=== PATIENT | female | born 1995 ===

== ENCOUNTER 2019-06-01 10:18 | Inpatient (IN) ==
[2019-06-01] MEDS ORDERED: OXYTOCIN 30 UNITS/500 ML BAG IV PRN ×2 (19:39→19:44)
[2019-06-01 20:19] LABS: Hematocrit (blood only) 32.1 % (37-47); Hemoglobin 11.1 g/dL (12.0-16.0); Mean Corpuscular Volume 85.6 fL (80-100); Mean Platelet Volume 11.3 fL (7.4-10.4); Platelet Count 192 K/uL (130-400); RDW Coefficient of Variation 12.9 % (11.5-14.5); RDW Standard Deviation 39.9 fL (36.4-46.3); Red Blood Count 3.75 M/uL (4.2-5.4); White Blood Count 8.27 K/uL (4.8-10.8)
[2019-06-01 20:22] LABS: Mean Corpuscular Hgb Conc 34.6 g/dL (32-36)
[2019-06-01] MEDS: LACTATED RINGER'S 1,000 ML IV PRN (20:30)
--- NOTE | 2019-06-01 21:51 | History & Physical Report ---
Date of Service June 01, 2019 Assessment & Plan (1) : Admit to L&D, IV access, labs, EFM/[place]. Will start pitocin for IOL. Patient plans for epidural. History of Present Illness Chief Complaint: eIOL Primary Care Provider: Jeremy Lujan MD 24yo @ 39 5/7 here for elective IOL. Uncomplicated . + movement. No vaginal bleeding, leaking of fluid, or regular ctx. Allergies Allergy/AdvReac Type Severity Reaction Status Date / Time Animal dander - Cats Allergy Uncoded 05/17/19 15:17 No Known Drug Allergies Allergy Uncoded 05/17/19 15:17 Home Medications Home Medications Medication Instructions Recorded Confirmed Type PNV cmb#95-ferrous fumarate-FA 1 tab PO DAILY 06/01/19 06/01/19 History [] Patient History Family History Grandmother (Paternal) Diabetes Hypertension Grandfather (Maternal) Diabetes Hyperlipidemia Hypertension Mother Depression Father Kidney stone Social History Preferred Language: Kiswahili Communication Ability: Effective [employer] Required: No Beliefs That Will Affect Care: None marital status: Current Living Situation: Spouse and Parent Current Living Situation Comment: And brothers Other Information That Helps Us Care for You: No Feels Safe at Home: Yes Safety Concerns: Feels Safe At This Time Smoking Status: Never smoker Second Hand Exposure: No ; Hx Alcohol Use: No Hx Substance Use: No Review of Systems All systems reviewed & are unremarkable except as noted in HPI & below Physical Exam Physical Exam: Gen: AAOx3 NAD CV: RRR L: CTAB Abd: soft, gravid, NTTP Ext: no edema SVE: 3/80/-2 FHT Cat 1 [place] no ctx Results & Data Vital Signs (Past 12 Hours) Vital Signs Temp Pulse Resp BP 06/01/19 19:49 36.8 C 18 06/01/19 19:46 99 H 133/81
[2019-06-02] MEDS ORDERED: BUPIVACAINE 0.25% 30 ML VIAL ONE (02:02)
[2019-06-02] MEDS ORDERED: fentaNYL citrate 100 MCG/2 ML VIAL ONE (02:02)
[2019-06-02] MEDS ORDERED: ePHEDrine sulfate 50 MG/ML AMP ONE (02:02)
[2019-06-02] MEDS ORDERED: fentaNYL 2MCG/ML ROPIV 1.25MG/ML 100 ML BAG EPI ONE (02:03)
--- NOTE | 2019-06-02 02:11 | Obstetrical Progress Note ---
Date of Service June 02, 2019 Subjective Uncomfortable with ctx, asking for epidural. FHT Cat 1 [place] Q2 SVE: /-2 Will obtain epidural, patient wants to wait for epidural before AROM. Results & Data Vital Signs (Past 12 Hours) Vital Signs Temp Pulse Resp BP 06/02/19 01:50 70 138/80 06/02/19 01:20 67 163/89 H 06/02/19 00:51 70 146/83 H 06/02/19 00:20 67 134/90 06/01/19 23:51 74 147/84 H 06/01/19 23:19 67 153/95 H 06/01/19 23:18 69 160/95 H 06/01/19 19:49 36.8 C 18 06/01/19 19:46 99 H 133/81 PG Care Time/CCT Total # of Minutes Spent Total Time Spent with Patient: Total time spent is greater than 50% in coordination of care (as documented) at patient's floor/unit and/or counseling patient:
[2019-06-02] MEDS: LACTATED RINGER'S 1,000 ML IV PRN (02:22)
--- NOTE | 2019-06-02 02:35 | Anesthesiology Consultation ---
Date of Service June 02, 2019 Assessment & Plan (1) Encounter for pre-operative examination: Chart Review Chart Review: Acceptable Risk for Labor Epidural History Height/Weight Height: 5 ft 2 in Weight: 82.1 kg Allergies Allergy/AdvReac Type Severity Reaction Status Date / Time Animal dander - Cats Allergy Uncoded 05/17/19 15:17 No Known Drug Allergies Allergy Uncoded 05/17/19 15:17 Medications Home Medications Medication Instructions Recorded Confirmed Last Taken PNV cmb#95-ferrous fumarate-FA 1 tab PO DAILY 06/01/19 06/01/19 05/30/19 09:00 [] Active Medications Generic Name Dose Route Start Last Admin Trade Name Freq PRN Reason Stop Dose Admin Lactated Ringer's 1,000 mls @ 125 mls/hr 06/01/19 19:39 06/02/19 02:22 Lr IV 06/03/19 19:38 999 mls/hr .Q8H PRN Administration L&D Protocol Protocol Oxytocin 30 units in 500 mls @ 9 mls/hr 06/01/19 19:44 06/01/19 23:18 Pitocin IV 06/03/19 19:43 0.54 units/hr .Q24H PRN 9 mls/hr Labor Induction/Augmentation Titration Protocol 0.54 UNITS/HR Past Medical History Medical History H/O migraine H/O viral infection Past Family History Family History Grandmother (Paternal) Diabetes Hypertension Grandfather (Maternal) Diabetes Hyperlipidemia Hypertension Mother Depression Father Kidney stone Past Surgical History Surgical History S/P wisdom tooth extraction Social History Smoking Status: Never smoker Hx Alcohol Use: No Hx Substance Use: No Physical Exam Vital Signs Last Vital Signs Temp 36.8 C 06/01/19 19:49 Pulse 76 06/02/19 02:31 Resp 18 06/01/19 19:49 BP 173/86 H 06/02/19 02:20 Pulse Ox 100 06/02/19 02:31 Testing Laboratory Results 06/01/19 20:04
[2019-06-02] MEDS ORDERED: NALOXONE HCL 0.4 MG/1 ML VIAL/CARP IV PRN (03:03)
[2019-06-02] MEDS ORDERED: ePHEDrine sulfate 50 MG/ML AMP IV PRN (03:03)
[2019-06-02] MEDS ORDERED: NALOXONE HCL 1 MG in SODIUM CHLORIDE 0.9% 1000ML 1,000 ML IV PRN (03:03)
[2019-06-02] MEDS ORDERED: ONDANSETRON INJ 2 MG/ML 2 ML VIAL IV PRN (03:03)
[2019-06-02] MEDS ORDERED: fentaNYL 2MCG/ML ROPIV 1.25MG/ML 100 ML BAG EPI PRN (03:03)
--- NOTE | 2019-06-02 07:00 | Obstetrical Progress Note ---
Date of Service June 02, 2019 Subjective Increasing pressure. FHT Cat 1. [place] Q 3-4 Cervix anterior lip Results & Data Vital Signs (Past 12 Hours) Vital Signs Temp Pulse Resp BP Pulse Ox 06/02/19 06:56 80 96 06/02/19 06:51 76 132/79 97 06/02/19 06:46 80 97 06/02/19 06:41 78 96 06/02/19 06:37 73 135/79 06/02/19 06:36 81 97 06/02/19 06:31 90 98 06/02/19 06:26 79 97 06/02/19 06:22 75 142/82 H 06/02/19 06:21 75 97 06/02/19 06:16 77 96 06/02/19 06:11 92 H 99 06/02/19 06:06 89 146/81 H 98 06/02/19 06:01 87 99 06/02/19 05:56 94 H 98 06/02/19 05:52 93 H 135/87 06/02/19 05:51 89 100 06/02/19 05:46 88 99 06/02/19 05:41 94 H 98 06/02/19 05:37 79 128/81 06/02/19 05:36 83 95 06/02/19 05:35 85 94 06/02/19 05:31 84 96 06/02/19 05:26 77 95 06/02/19 05:25 76 94 06/02/19 05:22 77 123/68 06/02/19 05:21 77 95 06/02/19 05:19 76 94 06/02/19 05:16 74 95 06/02/19 05:11 74 95 06/02/19 05:08 72 119/69 06/02/19 05:06 71 95 06/02/19 05:01 74 95 06/02/19 05:00 73 94 06/02/19 04:56 75 95 06/02/19 04:54 78 94 06/02/19 04:53 68 117/63 06/02/19 04:51 74 94 06/02/19 04:48 77 94 06/02/19 04:46 70 94 06/02/19 04:43 74 94 06/02/19 04:41 69 94 06/02/19 04:36 76 123/67 94 06/02/19 04:35 72 94 06/02/19 04:31 72 94 06/02/19 04:29 68 94 06/02/19 04:26 88 94 06/02/19 04:24 78 94 06/02/19 04:22 69 111/60 06/02/19 04:21 70 94 06/02/19 04:18 71 94 06/02/19 04:16 73 95 06/02/19 04:15 36.8 C 06/02/19 04:13 71 94 06/02/19 04:11 78 95 06/02/19 04:08 74 94 06/02/19 04:06 95 H 120/69 95 06/02/19 04:01 67 94 06/02/19 04:00 67 94 06/02/19 03:56 70 95 06/02/19 03:54 66 94 06/02/19 03:51 68 118/70 95 06/02/19 03:46 67 95 06/02/19 03:41 67 95 06/02/19 03:38 63 123/75 06/02/19 03:36 82 96 06/02/19 03:31 70 95 06/02/19 03:26 74 96 06/02/19 03:21 74 96 06/02/19 03:20 74 132/73 06/02/19 03:17 67 128/71 06/02/19 03:16 75 96 06/02/19 03:14 70 124/71 06/02/19 03:11 71 130/74 96 06/02/19 03:08 76 128/76 06/02/19 03:06 81 97 06/02/19 03:05 75 129/80 06/02/19 03:02 74 135/82 06/02/19 03:01 75 97 06/02/19 02:59 75 127/84 06/02/19 02:57 82 135/82 06/02/19 02:56 94 H 98 06/02/19 02:51 96 H 100 06/02/19 02:50 82 194/84 H 06/02/19 02:46 91 H 100 06/02/19 02:41 89 100 06/02/19 02:37 74 92 06/02/19 02:36 74 93 06/02/19 02:31 76 100 06/02/19 02:26 78 100 06/02/19 02:20 64 173/86 H 06/02/19 01:50 70 138/80 06/02/19 01:20 67 163/89 H 06/02/19 00:51 70 146/83 H 06/02/19 00:20 67 134/90 06/01/19 23:51 74 147/84 H 06/01/19 23:19 67 153/95 H 06/01/19 23:18 69 160/95 H 06/01/19 19:49 36.8 C 18 06/01/19 19:46 99 H 133/81 PG Care Time/CCT Total # of Minutes Spent Total Time Spent with Patient: Total time spent is greater than 50% in coordination of care (as documented) at patient's floor/unit and/or counseling patient:
--- NOTE | 2019-06-02 08:30 | Delivery Summary ---
Vaginal Delivery Summary Date of Service June 02, 2019 Vaginal Delivery Summary Vaginal Delivery Summary: Pre-delivery diagnoses: 24yo @ 39 6/7, eIOL Post-delivery diagnoses: same Procedure: spontaneous vaginal delivery, repair of 2nd degree perineal lac Surgeon: Alicia Manzo DO Complications: none Findings: Viable female . Apgars: 9/9 . Weight pending, please see nursery records Estimated blood loss: 300ml Description of delivery: The patient progressed to complete with epidural anesthesia. She then began to push. She spontaneously vaginally delivered a viable from the cephalic presentation. The head delivered in TINY position. The anterior shoulder delivered, followed by the posterior shoulder, followed by the body. The baby was placed on mother's abdomen and a spontaneous cry was heard. Delayed cord clamping was employed, and the cord was doubly clamped and cut. Cord blood was obtained for public banking. The placenta was delivered spontaneously intact with a 3-vessel cord. The uterus and vagina were swept of clots and debris. IV pitocin was given. The uterus became firm. The cervix, vagina, and perineum were inspected and a 2nd degree perineal laceration was noted and repaired in standard fashion with 3-0 vicryl. Excellent hemostasis was observed. The mother and baby are recovering in stable and good condition in the room. Sponge and instrument counts were correct x 2. [facility] [place]
[2019-06-02] MEDS ORDERED: OXYTOCIN 30 UNITS/500 ML BAG IV PRN (09:12)
[2019-06-02] MEDS ORDERED: ACETAMINOPHEN 325 MG TAB PO PRN (09:12)
[2019-06-02] MEDS ORDERED: BISACODYL 10 MG SUPP PR PRN (09:12)
[2019-06-02] MEDS ORDERED: NON-FORMULARY MEDICATION (Pnv Cmb#95-Ferrous Fumarate-Fa [Prenatal] 1 TAB) PO SCH (09:12)
[2019-06-02] MEDS ORDERED: SUPERCREAM 0.870% 15 GM JAR EXT PRN (09:12)
[2019-06-02] MEDS ORDERED: OXYCODONE/ACETAMINOPHEN 5mg/325mg TAB PO PRN (09:12)
[2019-06-02] MEDS ORDERED: BENZOCAINE 20% AER SPR 82.5 GM CAN EXT PRN (09:12)
[2019-06-02] MEDS ORDERED: DIPHTHERIA/TETANUS/PERTUSSIS 0.5 ML SYR/VIAL IM ONE (09:12)
[2019-06-02] MEDS ORDERED: HYDROCORTISONE ACETATE 25 MG SUPP PR PRN (09:12)
[2019-06-02] MEDS: IBUPROFEN 600 MG TAB PO PRN ×3 (11:04→22:27)
--- NOTE | 2019-06-02 12:13 | Anesthesia Procedure Note ---
Date of Service June 02, 2019 Anesthesia Post Epidural Note Vital Signs Vital Signs: Temp Pulse Resp BP Pulse Ox 36.9 C 83 18 125/65 95 06/02/19 07:00 06/02/19 09:21 06/02/19 07:00 06/02/19 09:21 06/02/19 09:21 Notes Mental Status: alert / awake / arousable Patient Amnestic to Procedure: Yes Nausea / Vomiting: adequately controlled Pain: adequately controlled Airway Patency, RR, SpO2: stable & adequate BP & HR: stable & adequate Hydration State: stable & adequate Neuraxial Anesthesia: was administered and sensory block resolved Anesthetic Complications: no major complications apparent and Pt Satisfied with anesthetic care Epidural: Removed without complications and With tip intact
[2019-06-02] MEDS: DOCUSATE SODIUM 100 MG CAP PO SCH (20:36)
--- NOTE | 2019-06-03 07:10 | Obstetrical Progress Note ---
Date of Service <Zulema Moody MD - Last Filed: 06/03/19 07:10> June 03, 2019 Assessment & Plan <Zulema Moody MD - Last Filed: 06/03/19 07:10> (1) Status post vaginal delivery: Yani is a 24 yo on PPD 1 after at 39w - GBS -, Blood Type A+, Rubella immune -Vitals reviewed and WNL -patient is doing clinically well continue routine post- care - After discharge will have [address] Manzo. Subjective <Zulema Moody MD - Last Filed: 06/03/19 07:10> Ambulation: ambulating normally Voiding: no voiding problems Passing Gas:: Yes Diet Tolerance:: regular diet Lochia:: Moderate Feeding Type:: breast feeding Current Pain Level(1-10): 2 examined at bedside Constitutional: no fever, no chills and no sweats Eyes: no worsening vision Respiratory: no cough and no dyspnea Cardiovascular: no chest pain, no palpitations, no edema and no calf pain Breast: no breast pain Gastrointestinal: no nausea and no vomiting Genitourinary (female): no dysuria and no urinary frequency Neurologic: no headache(s) Physical Exam <Zulema Moody MD - Last Filed: 06/03/19 07:10> Constitutional WD/WN, vitals as above no acute distress Respiratory normal respiratory effort, lungs clear to auscultation does not use accessory muscles Auscultation: no crackles, no rales, no rhonchi, no wheezes and no pleural rub Cardiovascular Rate/Rhythm: regular rate and regular rhythm Heart Sounds: normal S1 and normal S2; no gallop, no murmur and no cardiac rub Extremities: no calf tenderness and no pedal edema Gastrointestinal (Abdomen) Inspection/Auscultation: normal bowel sounds; abdomen not distended Percussion/Palpation: abdomen soft Genitourinary Uterus: fundus firm, palpable 1 cm below the uterus Results & Data <Zulema Moody MD - Last Filed: 06/03/19 07:10> Vital Signs (Past 12 Hours) Vital Signs Temp Pulse Resp BP Pulse Ox 06/03/19 04:45 36.9 C 95 H 18 128/85 97 06/02/19 23:20 37.0 C 87 18 142/88 H 98 06/02/19 20:00 36.7 C 100 H 18 134/86 96 <Jeancarlos Diaz Jr, MD, FACOG - Last Filed: 06/03/19 08:02> Co-Signing Physician Notes Resident Physician Supervision Note: I was present with Dr. Moody during the history and exam. I discussed the case with the resident and agree with the findings and plan as documented in the note. Any exceptions or clarifications are listed here: Having difficulty nursing, discussed and encouraged. Documented By: Jeancarlos Diaz Jr, MD, FACOG
[2019-06-03 07:19] LABS: Hematocrit (blood only) 29.8 % (37-47); Hemoglobin 10.1 g/dL (12.0-16.0)
[2019-06-03] MEDS: PRENATAL VITAMIN 1 TAB PO SCH (10:01)
[2019-06-03] MEDS: IBUPROFEN 600 MG TAB PO PRN ×2 (10:01→21:13)
[2019-06-03] MEDS: DOCUSATE SODIUM 100 MG CAP PO SCH ×2 (10:01→21:54)
[2019-06-03] MEDS ORDERED: BISACODYL 5 MG TABEC PO SCH (20:00)
--- NOTE | 2019-06-04 06:40 | Obstetrical Progress Note ---
Date of Service <Zulema Moody MD - Last Filed: 06/04/19 06:40> June 04, 2019 Assessment & Plan <Zulema Moody MD - Last Filed: 06/04/19 06:40> (1) Status post vaginal delivery: Yani is a 24 yo on PPD 2 after at 39w - GBS -, Blood Type A+, Rubella immune -Vitals reviewed and WNL -patient is doing clinically well but continues to struggle with -we will have the consultants see Yani before she is discharged - After discharge will have [address] Manzo. Subjective <Zulema Moody MD - Last Filed: 06/04/19 06:40> Ambulation: ambulating normally Voiding: no voiding problems Passing Gas:: Yes Diet Tolerance:: regular diet Lochia:: Small Feeding Type:: breast feeding (patient reports continued difficulty with nursing) Current Pain Level(1-10): 1 examined at bedside Constitutional: no fever, no chills and no sweats Respiratory: no cough and no dyspnea Cardiovascular: no chest pain, no edema and no calf pain Breast: + breast pain (discomfort from fullness) Gastrointestinal: no abdominal pain, no nausea and no vomiting Neurologic: no headache(s) Physical Exam <Zulema Moody MD - Last Filed: 06/04/19 06:40> Constitutional WD/WN, vitals as above no acute distress Respiratory normal respiratory effort, lungs clear to auscultation does not use accessory muscles Auscultation: no crackles, no rales, no rhonchi, no wheezes and no pleural rub Cardiovascular Rate/Rhythm: regular rate and regular rhythm Heart Sounds: normal S1 and normal S2; no gallop, no murmur and no cardiac rub Extremities: no calf tenderness and no pedal edema Gastrointestinal (Abdomen) Inspection/Auscultation: normal bowel sounds; abdomen not distended Percussion/Palpation: abdomen soft Psychiatric Orientation: alert and oriented x 3 Affect: + tearful affect Genitourinary Uterus: firm, fundus palpable 1 cm below umbilicus Results & Data <Zulema Moody MD - Last Filed: 06/04/19 06:40> Vital Signs (Past 12 Hours) Vital Signs Temp Pulse Resp BP 06/03/19 23:45 36.6 C 83 18 134/86 <Melony Contreras MD, FACOG - Last Filed: 06/04/19 07:57> Co-Signing Physician Notes Resident Physician Supervision Note: I interviewed and examined the patient. Discussed with Dr. Moody and agree with findings and plan as documented in the note. Any exceptions or clarifications are listed here: [None] Documented By: Melony Contreras MD, FACOG
[2019-06-04] MEDS: DOCUSATE SODIUM 100 MG CAP PO SCH (07:58)
[2019-06-04] MEDS: PRENATAL VITAMIN 1 TAB PO SCH (07:58)
== END 2019-06-04 12:25 | disposition home or self-care (01) | DRG 807 ==
LOC: 4S1 19:32 → 4S2 06-02 13:20